=== PATIENT | male | born 2000 | race Caucasian/White ===

== ENCOUNTER 2021-03-04 07:06 | Emergency (ER) | payer OTHER ==
[~2021-03-04 07:06] MED LIST: BENTYL10 MG PO; COLACE100 MG PO; ONDANSETRON ODT4 MG SL; PREDNISONE 20MG20 MG PO
[2021-03-04 08:09] LABS: BILIRUBIN NEGATIVE (NEGATIVE); BLOOD NEGATIVE Ery/uL (NEGATIVE); CLARITY CLEAR (CLEAR); COLOR YELLOW (YELLOW); GLUCOSE (U) NORMAL (NORMAL); LEUKOCYTES NEGATIVE Leu/uL (NEGATIVE); NITRITE NEGATIVE (NEGATIVE); PROTEIN NEGATIVE (NEGATIVE); SPECIFIC GRAVITY >=1.030 (1.001-1.030); UROBILINOGEN 0.2 mg/dL (0.2-1.0)
[2021-03-04 08:15] LABS: BASOPHIL 0.2 % (0-2); EOSINOPHIL 0.6 % (0-5); HCT 41.6 % (42.0-52.0); HGB 14.3 g/dl (13.2-18.0); MCH 31.5 pg (25.0-31.0); MCHC 34.4 g/dL (32.0-36.0); MCV 91.6 fL (78.0-100.0); MONOCYTE 6.3 % (0-12); MPV 10.1 fL (6.0-9.5); NEUTROPHIL 84.6 % (41-80); NRBC 0; PLT 184 K/uL (150-400); RBC 4.54 M/uL (4.70-6.00); RDW 12.2 % (11.5-14.0); WBC 12.9 K/uL (4.0-10.5)
[2021-03-04 09:10] LABS: BILIRUBIN - TOTAL 0.4 mg/dL (0.2-1.0); BUN/CREAT RATIO (CALC) 14.6 RATIO; CREATININE 0.96 mg/dL (0.67-1.17); GLOBULIN (CALCULATION) 3.2 g/dL; POTASSIUM 3.8 mmol/L (3.5-5.1); TOTAL PROTEIN 7.2 g/dL (6.4-8.2)
[2021-03-04] MEDS ORDERED: ZOFRAN4 M1 PO (12:12)
[2021-03-04] MEDS ORDERED: BENTYL10 MG PO (12:12)
== END 2021-03-04 12:26 | disposition home or self-care (01) ==
LOC: FER 07:06
PROVIDERS: Emergency Medicine
DX: R10.84 Generalized abdominal pain (principal); F17.290 Nicotine dependence, other tobacco product, uncomplicated; Z88.0 Allergy status to penicillin
CPT/HCPCS: 36415; 80053; 81003; 83690; 85025; J1885; J7030; Q9967

== ENCOUNTER 2021-07-21 07:38 | Emergency (ER) | payer OTHER ==
[~2021-07-21 07:38] MED LIST changes: +ZOFRAN4 M1 PO
[2021-07-21 08:17] LABS: BASOPHIL 0.2 % (0-2); EOSINOPHIL 0.8 % (0-5); HCT 46.9 % (42.0-52.0); HGB 15.8 g/dl (13.2-18.0); LYMPHOCYTE 14.7 % (15-48); MCH 30.7 pg (25.0-31.0); MCHC 33.7 g/dL (32.0-36.0); MCV 91.2 fL (78.0-100.0); MONOCYTE 10.1 % (0-12); MPV 10.4 fL (6.0-9.5); NRBC 0; PLT 145 K/uL (150-400); RBC 5.14 M/uL (4.70-6.00); RDW 11.9 % (11.5-14.0)
[2021-07-21 08:26] LABS: ALBUMIN 4.1 g/dL (3.4-5.0); BILIRUBIN - TOTAL 0.5 mg/dL (0.2-1.0); BUN/CREAT RATIO (CALC) 16.7 RATIO; CREATININE 1.14 mg/dL (0.67-1.17); GLOBULIN (CALCULATION) 3.4 g/dL; POTASSIUM 3.9 mmol/L (3.5-5.1); TOTAL PROTEIN 7.5 g/dL (6.4-8.2)
[2021-07-21] MEDS ORDERED: COMPAZINE10 MG PO (09:29)
[2021-07-21] MEDS ORDERED: PEPCID AC20 MG PO (09:29)
[2021-07-21] MEDS ORDERED: PROMETHEGA12.5 MG/SU PR (09:29)
== END 2021-07-21 09:38 | disposition home or self-care (01) ==
LOC: FER 07:38
PROVIDERS: Emergency Medicine Emergency Medical Services
DX: U07.1 COVID-19 (principal); F17.290 Nicotine dependence, other tobacco product, uncomplicated; Z88.0 Allergy status to penicillin
CPT/HCPCS: 36415; 74018; 80053; 83605; 83690; 85025; J0780; J7120